=== PATIENT | female | born 1980 | race Caucasian/White ===

== ENCOUNTER 2020-05-27 08:23 | Outpatient (CLI) | payer OTHER, SELFPAY ==
--- NOTE | ~2020-05-27 | MM_ITS ---
EXAMINATION: MM screening elma BI w néstor HISTORY: Screening mammogram TECHNIQUE: Craniocaudal and mediolateral oblique 3-D tomosynthesis images were obtained and synthetic 2-D images were generated. CAD analysis was submitted and interpreted. COMPARISON: 03/25/2008 BREAST PARENCHYMAL COMPOSITION: The breasts are heterogeneously dense, which may obscure small masses . FINDINGS: There is no evidence of suspicious mass, calcification, or architectural distortion to sugg est malignancy in either breast. There has been no suspicious interval change. IMPRESSION: 1. No mammographic evidence of malignancy. 2. Recommend routine screening mammography in one year. BI-RADS Category 1: Negative Reviewed, dictated and finalized at location A. TER SAXOPHONES
== END 2020-05-27 08:24 | disposition home or self-care (01) ==
LOC: ANHIMG 08:26
PROVIDERS: PCP Physician Assistant; Visit Provider Obstetrics & Gynecology
DX: Z12.31 Encounter for screening mammogram for malignant neoplasm of breast (principal)
CPT/HCPCS: 77063; 77067

== ENCOUNTER → 2020-07-25 13:47 | Outpatient (CLI) | payer OTHER, SELFPAY ==
--- NOTE | ~2020-07-25 | MR_ITS ---
EXAMINATION: MR abdomen wo/w con DATE: 07/25/2020 15:17 INDICATION: Increased norepinephrine level. TECHNIQUE: Magnetic resonance imaging (MRI) of the abdomen was performed without and with 15 mL Multi Sima intravenous contrast. Sequences included coronal and axial T2-weighted FSE, coronal LAVA-flex, coronal and axial dual-echo T1-weighted FSPGR, axial FIESTA FS, axial DWI, axial T1-weighted LAVA, an d axial STIR FSE. Postcontrast axial LAVA images were obtained in a time course. Postcontrast coronal LAVA-flex images were obtained. COMPARISON: Pelvis CT 11/07/16 FINDINGS: There is a 5 mm cyst in the liver. The gallbladder, spleen, and adrenal glands are normal. There is a 1.7 cm cystic lesion in the body of the pancreas. Right kidney is normal. There is a 3 mm cyst in le ft kidney. There are no dilated loops of bowel. There are no pathologically enlarged lymph nodes. The re is no free intraperitoneal fluid. IMPRESSION: 1. Normal adrenal glands. 2. 1.7 cm cystic lesion in the body of the pancreas. The differential diagnosis includes pseudocyst, intraductal papillary mucinous neoplasm (IPMN), mucinous cystic neoplasm (MCN), serous cystadenoma, a nd neuroendocrine tumor. Abdomen MRI without and with contrast is recommended in 6 months. Reviewed, dictated and finalized at location A. 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 Normal adrenal glands. 2. 1.7 cm cystic lesion in the body of the pancreas. The differential diagnosis includes pseudocyst, intraductal papillary mucinous neoplasm (IPMN), mucinous cystic neoplasm (MCN), serous cystadenoma, and neuroendocrine tumor. Abdomen MR I without and with contrast is recommended in 6 months.
[2020-07-25 14:53] LABS: Estimated Glomerular Filt Rate > 60
== END ==
PROVIDERS: PCP Physician Assistant; Visit Provider Physician Assistant
DX: R89.1 Abnormal level of hormones in specimens from other organs, systems and tissues (principal); K76.89 Other specified diseases of liver
CPT/HCPCS: 74183; A9577

== ENCOUNTER → 2021-02-13 11:51 | Outpatient (CLI) | payer OTHER, SELFPAY ==
--- NOTE | ~2021-02-13 | US_ITS ---
EXAMINATION: US thyroid DATE: 02/13/2021 12:12 INDICATION: Thyroid nodule. TECHNIQUE: Multiple ultrasound images of the thyroid were obtained. COMPARISON: None. FINDINGS: The right thyroid lobe measures 4.3 x 1.7 x 1.8 cm. The left thyroid lobe measures 4.7 x 1.4 x 1.8 c m. In the right thyroid lobe, there is a 4 mm nodule. In the right thyroid lobe, there is a 7 mm aleshia id, hypoechoic, llsld-lgbe-[id number] nodule with smooth margin without echogenic foci (TI-RADS TR4). In th e left thyroid lobe, there is a 6 mm solid, hypoechoic, oreyp-vttc-[id number] nodule with ill-defined sue n without echogenic foci (TR4). IMPRESSION: 1. Small thyroid nodules, likely not clinically significant. No follow-up is needed. Reviewed, dictated and finalized at location A. IMPRESSION: 1. Small thyroid nodules, likely not clinically significant. No follow-up is ne eded.
== END ==
PROVIDERS: PCP Physician Assistant
DX: E04.2 Nontoxic multinodular goiter (principal)
CPT/HCPCS: 76536

== ENCOUNTER → 2021-06-02 08:28 | Outpatient (CLI) | payer OTHER, SELFPAY ==
--- NOTE | ~2021-06-02 | XR_ITS ---
EXAMINATION: XR wrist RT min 3V DATE: 06/02/2021 08:49 INDICATION: Right wrist ganglion. Right wrist pain. TECHNIQUE: 4 views of right wrist were obtained. COMPARISON: None. FINDINGS: Bone alignment is normal. No fracture. There is mild osteoarthritis of first carpometacarpa l joint. IMPRESSION: 1. Mild osteoarthritis of first carpometacarpal joint. Reviewed, dictated and finalized at location A. NURSE
== END ==
PROVIDERS: PCP Physician Assistant; Visit Provider Physician Assistant
DX: M19.031 Primary osteoarthritis, right wrist (principal)
CPT/HCPCS: 73110

== ENCOUNTER 2021-09-01 08:55 | Outpatient (CLI) | payer OTHER, SELFPAY ==
--- NOTE | ~2021-09-01 | MM_ITS ---
EXAMINATION: MM screening elma BI w néstor HISTORY: Screening TECHNIQUE: Craniocaudal and mediolateral oblique 3-D tomosynthesis images were obtained and synthetic 2-D images were generated. CAD analysis was submitted and interpreted. COMPARISON: 05/27/2020 BREAST PARENCHYMAL COMPOSITION: The breasts are heterogenously dense, which may obscure small masses FINDINGS: There is no evidence of suspicious mass, calcification, or architectural distortion to sugg est malignancy in either breast. There has been no suspicious interval change. IMPRESSION: 1. No mammographic evidence of malignancy. 2. Recommend routine screening mammography in one year. BI-RADS Category 1: Negative Reviewed, dictated and finalized at location A. 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
== END 2021-09-01 08:56 | disposition home or self-care (01) ==
LOC: ANHIMG 08:59
PROVIDERS: PCP Physician Assistant; Visit Provider Obstetrics & Gynecology
DX: Z12.31 Encounter for screening mammogram for malignant neoplasm of breast (principal)
CPT/HCPCS: 77063; 77067

== ENCOUNTER → 2022-06-12 12:58 | Outpatient (CLI) | payer OTHER, SELFPAY ==
--- NOTE | ~2022-06-12 | US_ITS ---
US thyroid INDICATION: Follow-up thyroid nodules TECHNIQUE: Real-time sonographic images of the thyroid gland were obtained. COMPARISON: Comparison to ultrasound dated 02/13/2021 FINDINGS: The right thyroid lobe measures 4.5 x 2 x 1.7 cm. The left thyroid lobe measures 4.8 x 1.2 x 1.4 cm. In the right lobe there is a 5 mm cyst. Also in the right lobe there is a 2 mm oval circum scribed cystic lesion which is hypoechoic, wider than tall, smoothly marginated without calcification s. In the right lobe there is a mostly solid hypoechoic mass measuring 6 mm which is hypoechoic, wide r than tall, ill-defined margins and no echogenic foci, TR 4. In the left lobe there is an oval hypoe choic mass measuring 7 mm greatest dimension, solid, hypoechoic, wider than tall, smoothly marginated without echogenic foci, TR 4. Normal vascular flow is present. IMPRESSION: 1. Stable small thyroid nodules of doubtful clinical significance. Reviewed, dictated and finalized at location A. 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
== END ==
DX: E04.2 Nontoxic multinodular goiter (principal)
CPT/HCPCS: 76536

== ENCOUNTER 2022-07-13 09:01 | Outpatient (CLI) | payer OTHER, SELFPAY ==
[2022-07-13 21:16] LABS: Basophils Percent Auto 0.7 % (0.2-1.2); Eosinophils Absolute Auto 0.1 K/mm3 (0-0.3); Eosinophils Percent Auto 2.2 % (0-4.4); Hematocrit 44.1 % (37.0-47.0); Immature Granulocyte Absolute 0.01 K/mm3 (0.00-0.031); Immature Granulocyte Percent A 0.2 % (0-0.5); Lymphocytes Absolute Auto 2.07 K/mm3 (0.9-3.2); Lymphocytes Percent Auto 34.6 % (18.3-44.2); Mean Corpuscular Hemoglobin 32.5 pg (26-34); Mean Corpuscular Volume 95.5 fl (80-100); Mean Platelet Volume 9.2 fl (7.4-10.4); Monocytes Absolute Auto 0.5 K/mm3 (0.1-0.6); Monocytes Percent Auto 7.5 % (2.6-8.5); Neutrophils Absolute Auto 3.3 K/mm3 (1.3-6.7); Neutrophils Percent Auto 54.8 % (45.5-73.1); Platelet Count Result 269 k/mm3 (150-375); Red Blood Count 4.62 M/mm3 (4.2-5.4); Red Cell Distribution Width 11.6 % (11.5-14.5)
[2022-07-13 21:18] LABS: Add Urine Microscopic? NO; Appearance Urine Clear (Clear); Bilirubin Urine Negative (Negative); Blood Urine Negative (Negative); Color Urine Yellow (Yellow); Glucose Urine UA Negative (Negative); Ketones Urine Negative (Negative); Leukocyte Esterase Ur Negative LEU/UL (Negative); Nitrate Urine Negative (Negative); Protein Urine Negative (Negative); Specific Grav Ur 1.015 (1.001-1.035); Urobilinogen Urine 0.2 mg/dL (<2.0)
[2022-07-13 21:27] LABS: Alanine Aminotransferase 20 U/L (6-35); Albumin Level 4.6 g/dL (3.5-5.1); Alkaline Phosphatase 61 U/L (38-126); Anion Gap 5 mmol/L (8-16); Aspartate Amino Transferase 24 U/L (14-36); Bilirubin,Total 0.7 mg/dL (0.2-1.3); Blood Urea Nitrogen 14 mg/dL (7-17); Calcium 8.9 mg/dL (8.4-10.2); Carbon Dioxide 29 mmol/L (22-30); Chloride 105 mmol/L (98-107); Cholesterol 261 mg/dL (0-200); Estimated Glomerular Filt Rate > 60; Glucose 100 mg/dL (65-110); HDL Direct 43 mg/dL; Magnesium 2.2 mg/dL (1.6-2.3); Potassium 4.9 mmol/L (3.4-5.0); Sodium 139 mmol/L (137-145); Triglycerides 211 mg/dL (<150)
[2022-07-13 21:31] LABS: Bacteria Urine Trace /hpf; Mucus Urine Rare /lpf; Squamous Epithelial Cell Urine Many /hpf (Few); WBC Urine 0-3 /hpf
[2022-07-13 21:38] LABS: LDL Cholesterol Direct 142 mg/dL
[2022-07-13 21:44] LABS: Free T4 Free Thyroxine 0.94 ng/mL (0.78-2.19)
[2022-07-13 22:33] LABS: Folic Acid 17.1 ng/mL (2.76->20)
== END 2022-07-13 09:02 | disposition home or self-care (01) ==
LOC: ANHGOSHLAB 09:04
PROVIDERS: Visit Provider Physician Assistant
DX: Z51.81 Encounter for therapeutic drug level monitoring (principal); Z79.899 Other long term (current) drug therapy; Z13.220 Encounter for screening for lipoid disorders; Z13.1 Encounter for screening for diabetes mellitus
CPT/HCPCS: 36415; 80053; 80061; 81003; 82607; 82746; 83036; 83735; 84439; 84443; 85025

== ENCOUNTER → 2022-10-19 12:38 | Outpatient (CLI) | payer OTHER, SELFPAY ==
--- NOTE | ~2022-10-19 | CT_ITS ---
EXAMINATION: CT soft tissue neck w con DATE: 10/19/2022 13:08 INDICATION: Localized swelling, mass and lump, neck. TECHNIQUE: Computed tomography (CT) of the neck was performed with 75 mL Omnipaque-350 intravenous co ntrast. Automated exposure control and iterative reconstruction technique were employed. The dose-mary carmen gth product was 464.08 mGy-cm. COMPARISON: Thyroid ultrasound 06/12/2022 FINDINGS: There is a 5 mm nodule in the thyroid, likely not clinically significant. There are no path ologically enlarged lymph nodes. The mastoid air cells are normal. The paranasal sinuses are clear. T here is mild cervical spondylosis. IMPRESSION: 1. No etiology for the patient's symptoms. Reviewed, dictated and finalized at location A.
== END ==
PROVIDERS: PCP Physician Assistant
DX: R22.1 Localized swelling, mass and lump, neck (principal)
CPT/HCPCS: 70491; Q9967

== ENCOUNTER 2023-12-04 10:52 | Outpatient (CLI) | payer OTHER, SELFPAY ==
--- NOTE | ~2023-12-04 | US_ITS ---
EXAMINATION: US thyroid DATE: 12/04/2023 11:11 INDICATION: Thyroid nodule TECHNIQUE: Multiple ultrasound images of the thyroid were obtained. COMPARISON: None. FINDINGS: The right thyroid lobe measures 4.3 x 1.8 x 1.6 cm. The left thyroid lobe measures 4.3 x 1.5 x 1.8 c m. There are few subcentimeter solid hypoechoic very hypoechoic nodules without echogenic foci with smooth margins. (TI-RADS 4, moderately suspicious , FNA if >=1.5 cm, annual followup is >=1 cm), the largest measuring 6 mm in both the left and right thyroid lobes. There is normal echotexture, echogen icity and vascular flow throughout the remainder of the thyroid gland. IMPRESSION: 1. A few subcentimeter TI RADS 4 thyroid nodules which are below size threshold for either biopsy or follow-up. Reviewed, dictated and finalized at location A.
== END 2023-12-04 10:53 ==
LOC: MICIMG 10:54
PROVIDERS: PCP Physician Assistant
DX: D34 Benign neoplasm of thyroid gland (principal); H92.10 Otorrhea, unspecified ear
CPT/HCPCS: 76536

== ENCOUNTER 2025-01-14 09:19 | Outpatient (CLI) | payer OTHER, SELFPAY ==
--- NOTE | ~2025-01-14 | US_ITS ---
US thyroid INDICATION: Thyroid nodules TECHNIQUE: Real-time sonographic images of the thyroid gland were obtained. COMPARISON: Ultrasound dated 12/04/2023 and 06/12/2022 FINDINGS: The right thyroid lobe measures 4.5 x 1.7 x 1.6 cm. The left thyroid lobe measures 4.9 x 1 .6 x 1.7 cm. In the right lobe there is a 6 mm cyst. In the left lobe there is a 5 mm cyst. Also in t he left lobe there is a hypoechoic oval solid mass measuring 6 mm which is wider than tall, smoothly marginated without echogenic flow signal without significant change from prior examination line for t ramakrishna, TR 4. Normal vascular flow is present. IMPRESSION: 1. Stable likely benign left breast masses. No follow-up required. Reviewed, dictated and finalized at location A.
== END 2025-01-14 09:20 | disposition home or self-care (01) ==
LOC: GOSHIMG 09:20
PROVIDERS: PCP Physician Assistant
DX: E04.1 Nontoxic single thyroid nodule (principal)
CPT/HCPCS: 76536